=== PATIENT | female | born 1985 | race Caucasian/White ===

== ENCOUNTER 2017-07-30 10:23 | Emergency (ER) | payer OTHER ==
[~2017-07-30] VITALS: Ht 165.1 cm; Wt 49.2 kg
[~2017-07-30 10:23] MED LIST: METH-1625 PO; PRILOSEC; SOMA; [UNRECOGNIZED DRUG - CODE] PO
[2017-07-30 10:31] VITALS: BP 136/85
--- NOTE | 2017-07-30 11:21 | NUR ---
Patient to bed 08.
--- NOTE | 2017-07-30 11:22 | NUR ---
32/F BIB SELF c/o suprapubic pain x 2 yrs dysuria, vaginal spotting x2 days. abnormal pap 02/18/2017, ref by urgent care for pelvic u/s and abd/pel ct-- hx---hpv; rx---prilosec, zofran. DENIES N/V/D; SKIN IS PINK/WARM/DRY; AAOX4 WITH EVEN AND STEADY GAIT; LUNGS CLEAR BL; HR EVEN AND REGULAR; PT DENIES ANY FEVER, CP, SOB, OR COUGH AT THIS TIME; PATIENT STATES PAIN OF 6/10 AT THIS TIME; VSS; PATIENT POSITIONED FOR COMFORT; HOB ELEVATED; BEDRAILS UP X2; BED DOWN. ER MD MADE AWARE OF PT STATUS.
--- NOTE | 2017-07-30 11:27 | NUR ---
Patient being evaluated by DR SIMON at bedside.
[2017-07-30 11:43] LABS: BILIRUBIN,URINE NEGATIVE (NEGATIVE); BLOOD, URINE NEGATIVE (NEGATIVE); COLOR,URINE YELLOW (YELLOW); LEUKOCYTE ESTERASE ,URINE NEGATIVE (NEGATIVE); NITRITE, URINE NEGATIVE (NEGATIVE); PH,URINE 5.5 (5.0-9.0); UGLUCOSE NEGATIVE (NEGATIVE)
--- NOTE | 2017-07-30 11:43 | NUR ---
US AT BEDSIDE.
[2017-07-30 12:26] LABS: APPEARANCE,URINE SLIGHTLY HAZY (CLEAR); RBC,URINE 0-5 (RARE) /HPF (0-5); WBC,URINE 0-5 (RARE) /HPF (0-5)
--- NOTE | 2017-07-30 13:55 | NUR ---
Patient being reevaluated by DR SIMON at bedside.
[2017-07-30 13:58] VITALS: BP 122/66
--- NOTE | 2017-07-30 13:58 | NUR ---
Patient discharged with v/s stable. Written and verbal after care instructions given and explained. Patient verbalized understanding. Ambulatory with steady gait. All questions addressed prior to discharge. Advised to follow up with PMD.
== END 2017-07-30 13:58 | disposition home or self-care (01) ==
LOC: MED 10:23
DX: N83.202 Unspecified ovarian cyst, left side (principal); N83.201 Unspecified ovarian cyst, right side; Z91.040 Latex allergy status; K21.9 Gastro-esophageal reflux disease without esophagitis
CPT/HCPCS: 76830; 81001; 81025; 99285; Q0092